=== PATIENT | female | born 1930 | race Caucasian/White ===

== ENCOUNTER 2017-12-01 05:51 | Emergency (ER) | payer MEDICARE, OTHER ==
[~2017-12-01] VITALS: Ht 165.1 cm; Wt 77.1 kg
[~2017-12-01 05:51] MED LIST: ACETAMINOPHEN325 M1 PO; ANTIPYRINE-BENZ10 ML OTIC; ANTIVERT25 MG PO; ASPIRIN EC81 MG PO; BENADRYL25 MG PO; CEPHALEXIN250 MG PO; CEPHALEXIN500 MG PO; CLARITIN10 MG PO; COUMADIN5 MG PO; CVS LUTEIN 401 EACH PO; CYCLOBENZAPRINE10 MG PO; CYCLOBENZAPRINE5 MG PO; DIFLUCAN150 MG PO; DONEPEZIL HCL10 MG PO; FISH OIL 1,2001 EACH PO; FLUTICASONE PRO16 GM NS; HYDROCODON-ACE1 EA11 PO; LEVOTHYROXINE175 MCG PO; LEVOXYL175 MCG PO; LOVENOX30 MG SUB-Q; MAG-OXIDE400 MG PO; MULTI VITAMIN1 EACH PO; NITROFURANTOIN100 M1 PO; NITROSTAT0.4 MG SL; NORCO 5-325 TA1 EACH PO; NYSTATIN15 GM TOP; OCUVITE TABLET1 EAC1 PO; OXYBUTYNIN CHLO15 MG PO; OXYCODONE HCL5 MG PO; PEPCID20 MG PO; PERCOCET 5-3251 EACH PO; RIZATRIPTAN10 MG PO; SULFAMETHOXAZO1 EAC1 PO; TOPAMAX25 MG PO; TYLENOL325 MG; VITAMIN B-122000 MCG PO; WARFARIN SODIUM2 MG PO; WARFARIN SODIUM5 MG PO; XARELTO10 MG PO; ZANTAC150 MG PO; ZOFRAN ODT4 MG PO
[2017-12-01] MEDS ORDERED: BACTRIM DS TAB1 EACH PO (06:12)
== END 2017-12-01 09:27 | disposition short-term general hospital (02) ==
LOC: ED 05:51
DX: S06.340A Traumatic hemorrhage of right cerebrum without loss of consciousness, initial encounter (principal); S80.01XA Contusion of right knee, initial encounter; F03.90 Unspecified dementia, unspecified severity, without behavioral disturbance, psychotic disturbance, mood disturbance, and anxiety; J44.9 Chronic obstructive pulmonary disease, unspecified; K21.9 Gastro-esophageal reflux disease without esophagitis; E03.9 Hypothyroidism, unspecified; Z23 Encounter for immunization; Z86.73 Personal history of transient ischemic attack (TIA), and cerebral infarction without residual deficits; Z95.0 Presence of cardiac pacemaker; Z90.89 Acquired absence of other organs; Z88.1 Allergy status to other antibiotic agents; Z88.8 Allergy status to other drugs, medicaments and biological substances; Z79.01 Long term (current) use of anticoagulants; Z79.899 Other long term (current) drug therapy; W01.198A Fall on same level from slipping, tripping and stumbling with subsequent striking against other object, initial encounter; Y92.091 Bathroom in other non-institutional residence as the place of occurrence of the external cause
CPT/HCPCS: 70450; 70486; 72125; 73080; 73560; 80053; 85025; 85610; 86850; 86900; 86901; 86927; 90471; 90715; 96365; 99285; J3430

== ENCOUNTER 2017-12-19 20:42 | Emergency (ER) | payer MEDICARE, OTHER ==
[~2017-12-19] VITALS: Ht 165.1 cm; Wt 77.1 kg
[~2017-12-19 20:42] MED LIST changes: +BACTRIM DS TAB1 EACH PO
[2017-12-19] MEDS ORDERED: LISINOPRIL20 MG PO (20:56)
[2017-12-19] MEDS ORDERED: SIMVASTATIN80 MG PO (20:57)
[2017-12-19] MEDS ORDERED: OMEPRAZOLE20 MG PO (20:57)
== END 2017-12-19 21:11 | disposition home or self-care (01) ==
LOC: ED 20:42
DX: R41.0 Disorientation, unspecified (principal); F03.90 Unspecified dementia, unspecified severity, without behavioral disturbance, psychotic disturbance, mood disturbance, and anxiety; K21.9 Gastro-esophageal reflux disease without esophagitis; E03.9 Hypothyroidism, unspecified; Z88.1 Allergy status to other antibiotic agents; Z88.8 Allergy status to other drugs, medicaments and biological substances; Z79.899 Other long term (current) drug therapy
CPT/HCPCS: 99283

== ENCOUNTER 2018-08-01 06:28 | Emergency (ER) | payer MEDICARE, OTHER ==
[~2018-08-01] VITALS: Ht 165.1 cm; Wt 69.4 kg
[~2018-08-01 06:28] MED LIST changes: +ACETAMINOPHEN650 M3 PO; +ASPIR 8181 MG PO; +CALCIUM ANTACI400 MG PO; +CLONAZEPAM0.5 M1 PO; +COLACE CLEAR50 MG PO; +DONEPEZIL HCL10 M1 PO; +FISH OIL 1,001000 MG PO; +FOLIC ACID0.4 MG; +LISINOPRIL20 MG PO; +LOSARTAN POTAS100 MG PO; +MAGNESIUM-VIT1 EAC1 PO; +NEOMYCIN-POLY-7.5 ML OPTH; +OMEPRAZOLE20 MG PO; +SIMVASTATIN80 MG PO
[2018-08-01] MEDS ORDERED: BENADRYL25 MG PO (06:38)
--- OUTSIDE RECORDS SUMMARY | 2018-08-01 08:23 | XMS | Clinical Summary ---
Demographics + + + | Address | [address] | | | [place] [address] | + + + | Home Phone | | + + + | Preferred Language | Unknown | + + + | Marital Status | Unknown | + + + | Holiness Affiliation | 1076 | + + + | Race | Unknown | + + + | Ethnic Group | Unknown | + + + Author + + + | Author | [facility] | + + + | Organization | [facility] | + + + | Address | Unknown | + + + | Phone | Unavailable | + + + Support + + +---------+ + | Name | Relationship | Address | Phone | + + +---------+ + | Irineo Ornelas | ECON | Unknown | | + + +---------+ + | Song Ornelas | ECON | Unknown | | + + +---------+ + Care Team Providers + +------+ + | Care Distribution Supervisor Name | Role | Phone | + +------+ + | Ld Roldan MD | PP | | + +------+ + Allergies + + + + + + | Active Allergy | Reactions | Severity | Noted | Comments | | | | | Date | | + + + + + + | Ciprofloxacin | Hives | High | 12/19/19 | | | | | | 15 | | + + + + + + Current Medications + + +-------+---------+------+------+-------+ | Prescription | Sig. | Disp. | Refills | Star | End | Statu | | | | | | t | Date | s | | | | | | Date | | | + + +-------+---------+------+------+-------+ | lisinopril | Take 20 mg by mouth | | | | | Activ | | (ZESTRIL) 20 MG | daily. | | | | | e | | tablet | | | | | | | + + +-------+---------+------+------+-------+ | simvastatin | Take 80 mg by mouth | | | | | Activ | | (ZOCOR) 80 MG tablet | nightly. | | | | | e | + + +-------+---------+------+------+-------+ | omeprazole | Take 20 mg by mouth | | | | | Activ | | (PRILOSEC) 20 MG | every morning before | | | | | e | | capsule | breakfast. | | | | | | + + +-------+---------+------+------+-------+ | Vitamin D, | Take 1 tablet by | | | | | Activ | | Cholecalciferol, | mouth daily. | | | | | e | | 1000 UNITS TABS | | | | | | | + + +-------+---------+------+------+-------+ | folic acid | Take 800 mcg by | | | | | Activ | | (FOLVITE) 800 MCG | mouth daily. | | | | | e | | tablet | | | | | | | + + +-------+---------+------+------+-------+ | calcium carbonate | Take 250 mg by mouth | | | | | Activ | | 200 MG capsule | 2 (two) times daily | | | | | e | | | with meals. | | | | | | + + +-------+---------+------+------+-------+ | fish oil omega-3 | Take 1 g by mouth | | | | | Activ | | fatty acids 1000 MG | daily. | | | | | e | | capsule | | | | | | | + + +-------+---------+------+------+-------+ | donepezil | Take 10 mg by mouth | | | | | Activ | | (ARICEPT) 10 MG | daily. | | | | | e | | tablet | | | | | | | + + +-------+---------+------+------+-------+ | levothyroxine | Take 175 mcg by | | | | | Activ | | (SYNTHROID) 175 MCG | mouth daily. | | | | | e | | tablet | | | | | | | + + +-------+---------+------+------+-------+ | magnesium oxide | Take 400 mg by mouth | | | | | Activ | | (MAG-OX) 400 MG | daily. | | | | | e | | tablet | | | | | | | + + +-------+---------+------+------+-------+ | Multiple | Take 1 tablet by | | | | | Activ | | Vitamins-Minerals | mouth daily. | | | | | e | | (MULTIVITAMIN WITH | | | | | | | | MINERALS) tablet | | | | | | | + + +-------+---------+------+------+-------+ | loratadine | Take 1 tablet by | | | /2 | | Activ | | (CLARITIN) 10 MG | mouth daily as | | | 7/20 | | e | | tablet | needed for | | | 18 | | | | | Allergies. | | | | | | + + +-------+---------+------+------+-------+ | aspirin 81 MG EC | Take 1 tablet by | | | / | | Activ | | tablet | mouth daily with | | | 7/20 | | e | | | breakfast. | | | 18 | | | + + +-------+---------+------+------+-------+ Active Problems + + + | Problem | Noted Date | + + + | Traumatic hemorrhage of right cerebrum without loss of | 12/01/2017 | | consciousness (HCC) | | + + + | Aortic stenosis | 12/01/2017 | + + + | COPD (chronic obstructive pulmonary disease) (HCC) | 12/01/2017 | + + + | Gastroesophageal reflux disease without esophagitis | 12/01/2017 | + + + | Dysphagia | 12/01/2017 | + + + | Closed fracture of nasal bone | 12/01/2017 | + + + | Essential hypertension | 12/21/2014 | + + + + + | Last Assessment & Plan: Hypertension, controlled, continue | | current meds, managed by PCP. | + + + + + | HLD (hyperlipidemia) | 12/21/2014 | + + + + + | Last Assessment & Plan: Hyperlipidemia, managed by PCP. | + + + + + | Presence of cardiac pacemaker | 06/05/2014 | + + + + + | Overview: Medtronic Sensia [id number] Last Assessment & Plan: | | AVB/Pacemaker therapy, Atrial fibrillation, on warfarin. | | 84yo WF, here with her , Rolando is in a wheelchair, many | | other questions were asked her, her answers appear to be | | incurred, her corrects her on many of them., He states | | that she is uncomfortable out of her home. He denies any | | episodes of lightheadedness or syncope. Apparently there is no | | history of palpitations, chest discomfort, or shortness of | | breath, although she is quite sedentary. Since last year, no | | surgical procedures or hospitalizations. Labs are not available | | to us, but apparently she follows up on a regular basis with her | | PCP. She is on warfarin, he monitors her INRs on a regular | | basis. We had difficulty with her medication list, ultimately he | | does provide us with a list, and no changes are made in her | | therapy, as we were monitoring her device, her other issues being | | managed by her PCP. There appears to be a history of | | hypertension and hyperlipidemia.Hx ICD/Pacemaker: 04/10/2011, | | Medtronic Sensa (VDD), SN: [id number].Last interrogation, | | 12/19/2014: battery at 2.80V, 9years, stable, VDD (60/120), | | V-paced >99%.Last Cath: naLast Echo: naLast Stress Test: LinhG, | | 12/19/2014: V-paced 100%. | + + Family History + + +------+ + | Medical History | Relation | Name | Comments | + + +------+ + | Heart disease | Father | | | + + +------+ + | Heart disease | Mother | | | + + +------+ + + +------+ + + | Relation | Name | Status | Comments | + +------+ + + | Father | | | open heart w/ ROM Co[place]man | | | | (Age | | | | | 52) | | + +------+ + + | Mother | | | heart disease | | | | (Age | | | | | 84) | | + +------+ + + Social History + + + +--------+ + | Tobacco Use | Types | Packs/Day | Years | Date | | | | | Used | | + + + +--------+ + | Former Smoker | Cigarettes | 1 | 50 | Quit: 11/07/1981 | + + + +--------+ + + +---+---+---+ | Smokeless Tobacco: | | | | | Never Used | | | | + +---+---+---+ + + +---------+ + | Alcohol Use | Drinks/We | oz/Week | Comments | | | ek | | | + + +---------+ + | No | | | | + + +---------+ + + + + | Sex Assigned at | Date Recorded | | | | + + + | Not on file | | + + + Last Filed Vital Signs + + + + | Vital Sign | Reading | Time Taken | + + + + | Blood Pressure | 127/64 | 12/03/2017 11:33 AM PST | + + + + | Pulse | 71 | 12/03/2017 11:33 AM PST | + + + + | Temperature | 36.6 C (97.9 F) | 12/03/2017 11:33 AM PST | + + + + | Respiratory Rate | 22 | 12/03/2017 11:33 AM PST | + + + + | Oxygen Saturation | 100% | 12/03/2017 11:33 AM PST | + + + + | Inhaled Oxygen | - | - | | Concentration | | | + + + + | Weight | 65 kg (143 lb 6.4 | 12/03/2017 2:48 AM PST | | | oz) | | + + + + | Height | 154.9 cm (5' 1") | 12/01/2017 11:08 AM PST | + + + + | Body Mass Index | 27.1 | 12/03/2017 2:48 AM PST | + + + + Plan of Treatment + + + + + | Health Maintenance | Due Date | Last Done | Comments | + + + + + | Vaccine: | | | | | Dtap/Tdap/Td (1 - | 8 | | | | Tdap) | | | | + + + + + | Vaccine: Zoster (1 | | | | | of 2) | 9 | | | + + + + + | DEXA SCAN SCREENING | | | | | | 4 | | | + + + + + | Vaccine: | | | | | Pneumococcal 65+ | 4 | | | | Low/Medium Risk (1 | | | | | of 2 - PCV13) | | | | + + + + + | Vaccine: Influenza | | | | | (#1) | 8 | | | + + + + + Results Not on filefrom Last 3 Months Insurance + +--------+ +------+-------+ + | Payer | Benefi | Subscriber | Type | Phone | Address | | | t Plan | ID | | | | | | / | | | | | | | Group | | | | | + +--------+ +------+-------+ + | MEDICARE | MEDICA | [id number] | | | [address] | | | RE | | | | [place] [address] | | | IP-OP | | | | | + +--------+ +------+-------+ + | CIGNA | CIGNA | [id number] | | | | | | - | | | | | | | GENERI | | | | | | | C | | | | | + +--------+ +------+-------+ + + +--------+ +--------+ + + | Guarantor Name | Accoun | Relation to | Date | Phone | Billing Address | | | t Type | Patient | of | | | | | | | | | | + +--------+ +--------+ + + | ROLANDO ORNELAS | Person | Self [birth year] Home: | | | | al/Fam | | [phone] | [phone] | [place] [address] | | | jessica | | | [phone] | | + +--------+ +--------+ + +
--- OUTSIDE RECORDS SUMMARY | 2018-08-01 08:24 | XMS | Clinical Summary ---
Demographics + + + | Address | [address] | | | [place] [address] | + + + | Home Phone | | + + + | Preferred Language | Unknown | + + + | Marital Status | Unknown | + + + | Nondenominational Affiliation | 1076 | + + + | Race | Unknown | + + + | Ethnic Group | Unknown | + + + Author + + + | Author | [facility] | + + + | Organization | [facility] | + + + | Address [...] Team Providers + +------+ + | Care Disability Services Coordinator Name | Role | Phone | + [...] 04/10/2011, | | Medtronic Sensa (VDD), SN: [id number].Last interrogation, | | 12/19/2014: battery at 2.80V, [...] +------+-------+ + | MEDICARE | MEDICA | [id number] | | | [address] | | | RE | | | | [place] [address] | | | IP-OP | | | | | + +--------+ +------+-------+ + | CIGNA | CIGNA | [id number] | | | | | | - [...] | 1930 | [phone] | [place] [address] | | | jessica | | | [phone] | | + +--------+ +--------+ + +
--- OUTSIDE RECORDS SUMMARY | 2018-08-01 08:24 | XMS | Clinical Summary ---
Demographics + + + | Address | [address] | | | [place] [address] | + + + | Home Phone | | + + + | Preferred Language | Unknown | + + + | Marital Status | Unknown | + + + | Christian Affiliation | Unknown | + + + | Race | Unknown | + + + | Ethnic Group | Unknown | + + + Author + + + | Author | [facility] | | | and [place] | + + + | Organization | [facility] | | | and [place] | + + + | Address | Unknown | + + + | Phone | Unavailable | + + + Support + + +---------+ + | Name | Relationship | Address | Phone | + + +---------+ + | MorfinSong cr | ECON | Unknown | | + + +---------+ + Care Team Providers + +------+ + | Care Sales Account Associate Name | Role | Phone | + +------+ + PP | Unavailable | + +------+ + Allergies No Known Allergies Current Medications + + +-------+---------+------+------+-------+ | Prescription | Sig. | Disp. | Refills | Star | End | Statu | | | | | | t | Date | s | | | | | | Date | | | + + +-------+---------+------+------+-------+ | traMADol (ULTRAM) | 1-2 up to three | | | 04/0 | | Activ | | 50 mg tablet | times daily as | | | 2/20 | | e | | | needed | | | 12 | | | + + +-------+---------+------+------+-------+ Active Problems + + + | Problem | Noted Date | + + + | KNEE PAIN | 02/07/2012 | + + + | BACK PAIN, LUMBAR | 02/07/2012 | + + + | DEGENERATIVE DISC DISEASE, LUMBAR SPINE | 02/07/2012 | + + + | FUSION, HX OF | 02/07/2012 | + + + Social History + +-------+ +--------+------+ | Tobacco Use | Types | Packs/Day | Years | Date | | | | | Used | | + +-------+ +--------+------+ | Never Assessed | | | | | + +-------+ +--------+------+ + + + | Sex Assigned at | Date Recorded | | | | + + + | Not on file | | + + + Last Filed Vital Signs + + + + | Vital Sign | Reading | Time Taken | + + + + | Blood Pressure | - | - | + + + + | Pulse | - | - | + + + + | Temperature | - | - | + + + + | Respiratory Rate | - | - | + + + + | Oxygen Saturation | - | - | + + + + | Inhaled Oxygen | - | - | | Concentration | | | + + + + | Weight | 74.8 kg (165 lb) | 02/07/2012 0000 PDT | + + + + | Height | 165.1 cm (5' 5") | 02/07/2012 0000 PDT | + + + + | Body Mass Index | 27.46 | 02/07/2012 0000 PDT | + + + + Plan of [...]
--- OUTSIDE RECORDS SUMMARY | 2018-08-01 08:24 | XMS | Clinical Summary ---
Demographics + + + | Address | [address] | | | [place] [address] | + + + | Home Phone | | + + + | Preferred Language | Unknown | + + + | Marital Status | Unknown | + + + | Baptism Affiliation | Unknown | + + + | Race | Unknown | + + + | Ethnic Group | Unknown | + + + Author + + + | Author | [facility] | | | and [place] | + + + | Organization | [facility] | | | and [...] Team Providers + +------+ + | Care [employer] Press Operator Name | Role | Phone | + [...]
== END 2018-08-01 07:36 | disposition home or self-care (01) ==
LOC: ED 06:28
DX: Z04.3 Encounter for examination and observation following other accident (principal); F03.90 Unspecified dementia, unspecified severity, without behavioral disturbance, psychotic disturbance, mood disturbance, and anxiety; J44.9 Chronic obstructive pulmonary disease, unspecified; K21.9 Gastro-esophageal reflux disease without esophagitis; E03.9 Hypothyroidism, unspecified; Z86.73 Personal history of transient ischemic attack (TIA), and cerebral infarction without residual deficits; Z87.891 Personal history of nicotine dependence; Z88.1 Allergy status to other antibiotic agents; Z79.899 Other long term (current) drug therapy; Z79.82 Long term (current) use of aspirin
CPT/HCPCS: 99283